=== PATIENT | female | born 1980 | race Caucasian/White ===

== ENCOUNTER 2018-08-26 16:45 | Emergency (ER) | payer OTHER ==
--- NOTE | 2018-08-26 17:15 | ERPHSYRPT ---
- History of Present Illness Time Seen by Provider: 08/26/18 17:07 Source: patient Exam Limitations: no limitations Patient Subjective Stated Complaint: pain to throat for the last 24 hours. Patient report she has not taken anything for the sore throat Triage Nursing Assessment: alert and orientated times three. skin warm and dry. complains of sore throat Physician History: 37-year-old white female arrives with complaint of sore throat pain with swallowing symptoms for 24 hours. She denies fevers, nausea, vomiting she states she has not been otherwise ill. Past medical history is negative. Past surgical history is negative. Social history patient denies tobacco alcohol or illicit drug use. Timing/Duration: yesterday Severity: moderate Modifying Factors: Improves With: nothing Associated Symptoms: other (sore throat), No nausea, No vomiting, No abdominal pain, No shortness of breath, No heartburn, No diaphoresis, No cough, No chills , No chest pain, No fever, No headaches, No loss of appetite, No malaise, No rash, No syncope, No seizure, No weakness Allergies/Adverse Reactions: cephalexin [From Keflex] Adverse Reaction (Severe, Verified 08/26/18 17:08) Skin Irritation pealing to hands and feet Home Medications: Escitalopram Oxalate 10 mg [Lexapro 10 MG] 10 mg PO DAILY 08/26/18 [History] Hx Tetanus, Diphtheria Vaccination/Date Given: No Hx Influenza Vaccination/Date Given: Yes Hx Pneumococcal Vaccination/Date Given: No Immunizations Up to Date: Yes - Review of Systems Constitutional: No Fever, No Chills Eyes: No Symptoms Ears, Nose, & Throat: Throat Pain, No Ear Pain, No Ear Discharge, No Hearing Changes, No Tinnitus, No Nose Pain, No Nose Congestion, No Nose Discharge, No Sinus Drainage, No Epistaxis, No Mouth Pain, No Mouth Swelling, No Loose Teeth, No Throat Swelling, No Hoarse, No Painful Swallowing, No Snoring, No Stridor Respiratory: No Cough, No Dyspnea Cardiac: No Chest Pain, No Edema, No Syncope Abdominal/Gastrointestinal: No Abdominal Pain, No Nausea, No Vomiting, No Diarrhea Genitourinary Symptoms: No Dysuria Musculoskeletal: No Back Pain, No Neck Pain Skin: No Rash Neurological: No Dizziness, No Focal Weakness, No Sensory Changes Psychological: No Symptoms Endocrine: No Symptoms All Other Systems: Reviewed and Negative - Past Medical History Pertinent Past Medical History: Yes Neurological History: No Pertinent History ENT History: No Pertinent History Cardiac History: No Pertinent History Respiratory History: No Pertinent History Endocrine Medical History: No Pertinent History Musculoskeletal History: No Pertinent History GI Medical History: No Pertinent History History: No Pertinent History Psycho-Social History: No Pertinent History Female Reproductive Disorders: No Pertinent History - Past Surgical History Past Surgical History: Yes (colon biopsy) Neuro Surgical History: No Pertinent History Cardiac: No Pertinent History Respiratory: No Pertinent History Gastrointestinal: No Pertinent History, Bowel Surgery Genitourinary: No Pertinent History Musculoskeletal: No Pertinent History Female Surgical History: Tubal Ligation - Social History Smoking Status: Never smoker Exposure to second hand smoke: No Drug Use: none Patient Lives Alone: No - Female History Hx Last Menstrual Period: curently, started on thursday Hx Now: No - Nursing Vital Signs Nursing Vital Signs: Initial Vital Signs Temperature 98.8 F 08/26/18 16:51 Pulse Rate 96 H 08/26/18 16:51 Respiratory Rate 24 08/26/18 16:51 Blood Pressure 134/96 08/26/18 16:51 O2 Sat by Pulse Oximetry 98 08/26/18 16:51 Pain Scale Pain Intensity 4 - Physical Exam General Appearance: no apparent distress, alert Eye Exam: PERRL/EOMI, eyes nml inspection Ears, Nose, Throat Exam: TMs normal, moist mucous membranes, pharyngeal erythema , No pharynx normal, No dry mucous membranes, No TM abnormal (R), No TM abnormal (L), No tonsillar exudate Neck Exam: normal inspection, non-tender, supple, full range of motion Respiratory Exam: normal breath sounds, lungs clear, No respiratory distress Cardiovascular Exam: regular rate/rhythm, normal heart sounds, normal peripheral pulses, capillary refill <2 sec Gastrointestinal/Abdomen Exam: soft, normal bowel sounds, No tenderness, No mass Back Exam: normal inspection, normal range of motion, No CVA tenderness, No vertebral tenderness Extremity Exam: normal inspection, normal range of motion, pelvis stable Neurologic Exam: alert, oriented x 3, cooperative, ssn/ssbn assistant navigator II-XII nml as tested, normal mood/affect, nml cerebellar function, nml station & gait, sensation nml, No motor deficits Skin Exam: normal color, warm, dry, No rash Lymphatic Exam: No adenopathy SpO2 Interpretation: normal (98%) SpO2: 98 Lab/Rad Data: Laboratory Results 08/26/18 Range/Units 17:30 Group A Strep Antibody NEGATIVE (NEGATIVE) - Progress Progress: improved Progress Note: 08/26/18 17:13 37-year-old white female previously healthy arrives with complaint of sore throat since yesterday. She has not had any fevers no nausea no vomiting no diarrhea no chest pain no shortness of breath she states she's just has pain with swallowing. Patient with erythema of the throat. She has a normal heart rate blood pressure stable vitals are stable she is afebrile pulse ox is 98% she has good perfusion to all extremities. 08/26/18 17:15 08/26/18 18:16 Strep is negative will place patient on tapering dose of prednisone. - Departure Departure Disposition: Home Clinical Impression: Throat pain, Viral pharyngitis Condition: Fair Critical Care Time: No Referrals: CONNER COOK MD [Primary Care Provider] - Instructions: Viral Pharyngitis (DC) Additional Instructions: Return home. Plenty of fluids. Tapering prednisone as directed. Followup with your family symptoms are worse, no better in 48 hours or persist longer than one week. Return for acute distress or for severe symptoms.
[2018-08-26 18:32] VITALS: BP 136/73; PULSE 99; O2SAT 99
== END 2018-08-26 18:32 | disposition home or self-care (01) ==
LOC: ED 16:45
DX: R07.0 Pain in throat (principal); J02.9 Acute pharyngitis, unspecified
CPT/HCPCS: 87651; 99283

== ENCOUNTER 2018-08-28 05:56 | Emergency (ER) | payer OTHER ==
[2018-08-28 06:12] VITALS: BP 182/98
[2018-08-28] MEDS: ULTRAM 50 MG PO ONE (06:23)
[2018-08-28] MEDS ORDERED: ULTRAM 50 MG ONE (06:23)
[2018-08-28] MEDS: AMOXIL 500 MG PO ONE (06:23)
[2018-08-28] MEDS ORDERED: AMOXIL 500 MG ONE (06:23)
--- NOTE | 2018-08-28 06:25 | ERPHSYRPT ---
- History of Present Illness Time Seen by Provider: 08/28/18 06:09 Source: patient Exam Limitations: no limitations Patient Subjective Stated Complaint: pt is alert and oriented. pt comes in with c/o left ear pain. pt states that the pain startedat about 0500 this morning and woke her up. pt states that her pain is a "20 on a 1-10 scale." the outer ear is WNL. Ear canal WNL. unable to visualize the eardrum. no drainage noted. Triage Nursing Assessment: see above Physician History: C/o left earache since 5 AM today, denies cough, congestion, sore throat, severe headaches, vomiting or other complaints. Timing/Duration: abrupt onset Severity: severe ENT Location: ear (L) Prearrival Treatment: no prearrival treatment Modifying Factors: Improves With: nothing Associated Symptoms: ear pain (L) Allergies/Adverse Reactions: cephalexin [From Keflex] Adverse Reaction (Severe, Verified 08/26/18 17:08) Skin Irritation pealing to hands and feet Home Medications: Escitalopram Oxalate 10 mg [Lexapro 10 MG] 10 mg PO DAILY 08/26/18 [History] Atorvastatin Calcium 10 mg PO DAILY 08/28/18 [History] Meloxicam 15 mg PO DAILY 08/28/18 [History] Hx Tetanus, Diphtheria Vaccination/Date Given: No Hx Influenza Vaccination/Date Given: Yes Hx Pneumococcal Vaccination/Date Given: No Immunizations Up to Date: Yes - Review of Systems Constitutional: No Symptoms Eyes: No Symptoms Ears, Nose, & Throat: Ear Pain Respiratory: No Symptoms Cardiac: No Symptoms Abdominal/Gastrointestinal: No Symptoms Genitourinary Symptoms: No Symptoms Musculoskeletal: No Symptoms Skin: No Symptoms Neurological: No Symptoms All Other Systems: Reviewed and Negative - Past Medical History Pertinent Past Medical History: Yes Neurological History: No Pertinent History ENT History: No Pertinent History Cardiac History: No Pertinent History Respiratory History: No Pertinent History Endocrine Medical History: No Pertinent History Musculoskeletal History: No Pertinent History GI Medical History: No Pertinent History History: No Pertinent History Psycho-Social History: No Pertinent History Female Reproductive Disorders: No Pertinent History - Past Surgical History Past Surgical History: Yes (colon biopsy) Neuro Surgical History: No Pertinent History Cardiac: No Pertinent History Respiratory: No Pertinent History Gastrointestinal: No Pertinent History, Bowel Surgery Genitourinary: No Pertinent History Musculoskeletal: No Pertinent History Female Surgical History: Tubal Ligation - Social History Smoking Status: Never smoker Exposure to second hand smoke: No Drug Use: none Patient Lives Alone: No - Female History Hx Now: No - Nursing Vital Signs Nursing Vital Signs: Initial Vital Signs Temperature 98.3 F 08/28/18 06:06 Pulse Rate 70 08/28/18 06:06 Respiratory Rate 18 08/28/18 06:06 Blood Pressure 182/98 08/28/18 06:06 O2 Sat by Pulse Oximetry 97 08/28/18 06:06 Pain Scale Pain Intensity 10 - Physical Exam General Appearance: no apparent distress Eye Exam: bilateral eye: normal inspection, PERRL Ear Exam: right ear: TM normal, left ear: TM dull, TM red, bilateral ear: auricle normal, canal normal Nasal Exam: normal inspection Throat Exam: normal, pharynx normal Neck Exam: normal inspection, non-tender, supple, No lymphadenopathy (R), No lymphadenopathy (L) Abdominal Exam: non-tender, soft Neurologic Exam: alert, oriented x 3, normal mood/affect Skin Exam: normal color, warm, dry, No rash SpO2 Interpretation: normal SpO2: 97 O2 Delivery: Room Air - Course Nursing assessment & vital signs reviewed: Yes - Progress Progress: improved Progress Note: 08/28/18 06:20 Pt was given Ultram,. started on PO Amoxicillin, and discharged home on PO Amoxicillin, to rest x 2-3 days, drink plenty of fluids, and follow up with her physician next week. Counseled pt/family regarding: diagnosis, need for follow-up - Departure Departure Disposition: Home Clinical Impression: Otitis media Qualifiers: Otitis media type: unspecified Chronicity: acute Qualified Code(s): H66.90 - Otitis media, unspecified, unspecified ear Condition: Stable Critical Care Time: No Referrals: CONNER COOK MD [Primary Care Provider] - Instructions: Ear Infections (Otitis Media) (DC) Additional Instructions: Resst x 2-3 days, drink plenty of fluids, and follow up with your physician next week, return if severe headaches, vomiting, high fever> 102 F, lethargy ! Prescriptions: Amoxicillin 500 mg PO TID 10 Days #30 capsule Tramadol HCl 50 mg [Ultram 50 mg] 50 mg PO Q6H PRN #10 tablet PRN Reason: Pain
[2018-08-28 06:54] VITALS: PULSE 58; O2SAT 98
== END 2018-08-28 07:04 | disposition home or self-care (01) ==
LOC: ED 05:56
DX: H66.90 Otitis media, unspecified, unspecified ear (principal)
CPT/HCPCS: 99283; A9270-GY

== ENCOUNTER 2018-10-08 22:30 | Emergency (ER) | payer OTHER ==
--- NOTE | 2018-10-08 22:36 | ERPHSYRPT ---
- History of Present Illness Time Seen by Provider: 10/08/18 22:36 Source: patient Exam Limitations: no limitations Physician History: 37 y/o right handed white female injured right 5th digit greater than 24 hours ago smashing against oven at home. pt cleaned, antibx ointment and bandaged. superficial would clean and healing. however, still swollen and cannot flex 5th digit. Occurred: yesterday Method of Injury: direct blow Quality: constant, aching Severity of Pain-Max: moderate Severity of Pain-Current: mild Extremities Pain Location: 5th finger: right Modifying Factors: Improves With: movement Associated Symptoms: none Allergies/Adverse Reactions: cephalexin [From Keflex] Adverse Reaction (Severe, Verified 10/08/18 22:52) Skin Irritation pealing to hands and feet Home Medications: Escitalopram Oxalate 10 mg [Lexapro 10 MG] 10 mg PO DAILY 08/26/18 [History] Atorvastatin Calcium 10 mg PO DAILY 08/28/18 [History] Meloxicam 15 mg PO DAILY 08/28/18 [History] Hx Tetanus, Diphtheria Vaccination/Date Given: No Hx Influenza Vaccination/Date Given: Yes Hx Pneumococcal Vaccination/Date Given: No - Review of Systems Constitutional: No Symptoms Eyes: No Symptoms Ears, Nose, & Throat: No Symptoms Respiratory: No Symptoms Cardiac: No Symptoms Abdominal/Gastrointestinal: No Symptoms Genitourinary Symptoms: No Symptoms Musculoskeletal: Injury (right 5th digit) Skin: Other (abrasion right 5th difgit) Neurological: No Symptoms Psychological: No Symptoms Endocrine: No Symptoms Hematologic/Lymphatic: No Symptoms Immunological/Allergic: No Symptoms All Other Systems: Reviewed and Negative - Past Medical History Pertinent Past Medical History: Yes Neurological History: No Pertinent History ENT History: No Pertinent History Cardiac History: No Pertinent History Respiratory History: No Pertinent History Endocrine Medical History: No Pertinent History Musculoskeletal History: No Pertinent History GI Medical History: No Pertinent History History: No Pertinent History Psycho-Social History: No Pertinent History Female Reproductive Disorders: No Pertinent History - Past Surgical History Past Surgical History: Yes (colon biopsy) Neuro Surgical History: No Pertinent History Cardiac: No Pertinent History Respiratory: No Pertinent History Gastrointestinal: No Pertinent History, Bowel Surgery Genitourinary: No Pertinent History Musculoskeletal: No Pertinent History Female Surgical History: Tubal Ligation - Social History Smoking Status: Never smoker Exposure to second hand smoke: No Drug Use: none Patient Lives Alone: No - Nursing Vital Signs Nursing Vital Signs: Initial Vital Signs Temperature 97.7 F 10/08/18 22:38 Pulse Rate 71 10/08/18 22:38 Respiratory Rate 18 10/08/18 22:38 Blood Pressure 154/91 10/08/18 22:38 O2 Sat by Pulse Oximetry 99 10/08/18 22:38 Pain Scale Pain Intensity 9 - Physical Exam General Appearance: no apparent distress, alert, anxiety Eyes, Ears, Nose, Throat Exam: normal ENT inspection, moist mucous membranes Neck Exam: normal inspection, non-tender, supple, full range of motion Cardiovascular/Respiratory Exam: chest non-tender Abdominal Exam: non-tender Back Exam: normal inspection, normal range of motion, No CVA tenderness, No vertebral tenderness Shoulder Exam: normal inspection, non-tender, no evidence of injury, normal ROM Elbow/Forearm Exam: normal inspection, non-tender, no evidence of injury, normal ROM Wrist Exam: normal inspection, non-tender, no evidence of injury, normal ROM Hand Exam: abrasions (right 5th digit), bone tenderness, limited ROM, soft tissue tenderness, stiffness, swelling Neuro/Tendon Exam: normal sensation, normal tendon functions Mental Status Exam: alert, oriented x 3, cooperative Skin Exam: abrasion (as above) SpO2 Interpretation: normal O2 Delivery: Room Air Ordered Tests: Active Orders 24 hr Category Date Time Status HAND (MINIMUM 3 VIEWS) Stat Exams 10/08/18 22:51 Taken Medication Summary Discontinued Medications Generic Name Dose Route Start Last Admin Trade Name Pauline PRN Reason Stop Dose Admin Hydrocodone Bitart/Acetaminophen 1 tab 10/08/18 22:52 10/08/18 23:09 [place] 5/325 Mg PO 10/08/18 22:53 1 tab STAT ONE Administration Hydrocodone Bitart/Acetaminophen Confirm 10/08/18 23:05 [place] 5/325 Mg Administered 10/08/18 23:06 Dose 1 tab .ROUTE .STK-MED ONE Diphtheria/Tetanus/Acell Pertussis 0.5 ml 10/08/18 22:52 10/08/18 23:09 Adacel Vial IM 10/08/18 22:53 0.5 ml .ONCE ONE Administration Diphtheria/Tetanus/Acell Pertussis Confirm 10/08/18 23:06 Adacel Vial Administered 10/08/18 23:07 Dose 0.5 ml IM .STK-MED ONE Trimethoprim/Sulfamethoxazole 1 tab 10/08/18 22:52 10/08/18 23:08 Bactrim Ds Tablet PO 10/08/18 22:53 1 tab STAT STA Administration Trimethoprim/Sulfamethoxazole Confirm 10/08/18 23:05 Bactrim Ds Tablet Administered 10/08/18 23:06 Dose 1 tab PO .STK-MED ONE - Progress Progress: improved, re-examined Progress Note: 10/08/18 23:24 xray right hand-no acute fx or dislocation Counseled pt/family regarding: diagnosis, need for follow-up - Departure Departure Disposition: Home Clinical Impression: Finger abrasion, Finger contusion Condition: Stable Critical Care Time: No Referrals: CONNER COOK MD [Primary Care Provider] - Additional Instructions: keep abrasion site clean daily with soap, water and hydrogen peroxide once daily. antibiotic ointment daily after washing and cover with bandaid. wear finger splint for comfort. follow up with primary doctor for further management. ice pack 3 times daily, tylenol for pain Prescriptions: Smz/Tmp Ds Tablet [Bactrim Ds Tablet] 1 udtab PO BID #10 tablet
[2018-10-08] MEDS ORDERED: NORCO 5/325 MG PO ONE (22:52)
[2018-10-08] MEDS ORDERED: BACTRIM DS TABLET PO STA (22:52)
[2018-10-08] MEDS ORDERED: Adacel Vial IM ONE ×2 (22:52→23:06)
[2018-10-08] MEDS ORDERED: BACTRIM DS TABLET PO ONE (23:05)
[2018-10-08] MEDS ORDERED: NORCO 5/325 MG ONE (23:05)
[2018-10-08 23:59] VITALS: BP 122/73; PULSE 84; O2SAT 95
--- NOTE | 2018-10-09 08:42 | XRAY ---
Indication: 5th finger trauma. Comparison: None 3 views of the right hand demonstrates mild proximal 5th finger soft tissue swelling. No other bony, articular, or soft tissue abnormalities.
== END 2018-10-08 23:59 | disposition home or self-care (01) ==
LOC: ED 22:30
DX: S60.051A Contusion of right little finger without damage to nail, initial encounter (principal); W22.09XA Striking against other stationary object, initial encounter; Y93.9 Activity, unspecified; Z79.899 Other long term (current) drug therapy
CPT/HCPCS: 73130; 90471; 90715; 99284; A9270-GY